=== PATIENT | male | born 1985 | race Hispanic/Latino ===

== ENCOUNTER 2022-05-30 18:43 | Emergency (ER) | payer SELFPAY ==
[~2022-05-30] VITALS: Ht 160 cm; Wt 81.6 kg
[2022-05-30] MEDS ORDERED: KETOROLAC TROMETHAMINE 60 MG/2 ML VIAL IM ONE (19:15)
[2022-05-30] MEDS ORDERED: ULTRAM 50MG50 MG PO (20:39)
== END 2022-05-30 20:43 | disposition home or self-care (01) ==
LOC: ER 19:18
DX: S40.022A Contusion of left upper arm, initial encounter (principal); S80.12XA Contusion of left lower leg, initial encounter; W10.9XXA Fall (on) (from) unspecified stairs and steps, initial encounter
CPT/HCPCS: 73060; 73090; 73552; 99283; J1885